=== PATIENT | male | born 1980 | race Caucasian/White ===

== ENCOUNTER 2022-07-24 13:23 | Emergency (ER) | payer SELFPAY ==
[2022-07-24] MEDS ORDERED: Lidocaine 1% PF 5 ML VIAL ONE (15:24)
[2022-07-24] MEDS ORDERED: Bupivacaine 0.25% 10 ML VIAL ONE (15:34)
[2022-07-24] MEDS ORDERED: Morphine 10 MG/ML VIAL ONE (15:37)
[2022-07-24] MEDS ORDERED: Bupivacaine PF 0.5% 30 ML VIAL SC SCH (15:45)
== END 2022-07-24 17:16 | disposition home or self-care (01) ==
LOC: ERS 13:23
DX: S61.217A Laceration without foreign body of left little finger without damage to nail, initial encounter (principal); W26.8XXA Contact with other sharp object(s), not elsewhere classified, initial encounter
CPT/HCPCS: 12002; 96372; J2270; S0020